=== PATIENT | female | born 2005 | race Caucasian/White ===

== ENCOUNTER 2025-08-11 13:24 | Emergency (ER) | payer OTHER, SELFPAY ==
[2025-08-11 13:30] VITALS: BP 101/62; PULSE 77; RESP 18; TEMP 37.2; O2SAT 98
--- NOTE | 2025-08-11 13:56 | ED_ITS ---
HPI - Ear Problem General Chief complaint: Ear Stated complaint: Ear pain Time Seen by Provider: 08/11/25 13:45 Source: patient, family, RN notes reviewed and old records reviewed Mode of arrival: ambulatory Limitations: no limitations History of Present Illness HPI Narrative: 19 year old female who presents to [facility] care accompanied by mother with complaints of bilateral ear pain with left ear greatest and sore throat for 3 days. Mother reports that patient has problems with ear wax and thinks that is why ears hurt. Patient also states that she ate something hot and she thinks she may of burned the roof of her mouth. Patient reports no cough, body aches or any known fevers or chills. MD Complaint: ear pain and other (sore throat) Location: left ear Duration: constant Severity: moderate Discharge from ear: Reports no Treatment prior to arrival: attempt at ear wax removal Related Data Home Medications ?Medication ?Instructions ?Recorded ?Confirmed ?Last Taken ?Type Flonase 08/11/25 Unknown History Zyrtec 08/11/25 Unknown History escitalopram oxalate 10 mg tablet mg 08/11/25 Unknown History Allergies Allergy/AdvReac Type Severity Reaction Status Date / Time No Known Allergies Allergy Verified 08/11/25 13:39 Review of Systems Review of Systems: CONSTITUTIONAL: Denies malaise, chills, sweats, or fever. EYES: Denies visual changes, redness, or discharge. ENT: Reports no rhinorrhea, congestion, sinus pain,bilateral otalgia, Left > Right,and+ sore throat. CARDIOVASCULAR: Denies chest pain, palpitations, or edema. RESPIRATORY: Reports no cough.? Denies dyspnea. GASTROINTESTINAL: Denies abdominal pain, nausea, vomiting, diarrhea SKIN: Denies rash or itching. MUSCULOSKELETAL: Denies myalgia. NEUROLOGIC: Denies headache. All systems reviewed & are unremarkable except as noted in HPI and below PMFSH Past Medical History Medical History (Updated 08/12/25 @ 14:05 by Lynette Del Rio APRN) Autism spectrum Surgical History Surgical History (Updated 08/12/25 @ 13:52 by Lynette Del Rio APRN) History of dental surgery some teeth removed H/O eye surgery right Social History Social History (Updated 08/12/25 @ 13:53 by Lynette Del Rio APRN) Smoking status: Never smoker Alcohol intake: never Substance use: never Living arrangements: with family Gender identity (if verbalized by the patient): Female Comments At time of signature, agree with nursing past medical, surgical, social and family history. There is no relevant family history pertinent to the presenting complaint Exam Narrative: GENERAL: Well-appearing, well-nourished, and in no acute distress. HEAD: Normocephalic EYES: PERRLA, conjunctivae clear ENT: Nares clear, turbinates edematous and erythematous, clear discharge. Mucous membranes moist.Right TM pearly chávez with dull light reflex bilaterally; Left TM occluded with wax, some irritation noted to ear canal, once cleared TM noted to be chávez with dull light reflex, no tragal tenderness. Oropharynx erythematous without lesions. Tonsils not enlarged and without exudate, no drooling, no hoarseness, no trismus, uvula midline.no redness noted to roof of mouth or surrounding structure. NECK: Supple. No lymphadenopathy CHEST: Clear to auscultation, breath sounds equal. No wheezing, rhonchi, rales, or stridor. No respiratory distress, speaks in full sentences.SAO2 99% on room air HEART: Regular rate and rhythm. No murmur heard. SKIN: Warm, dry, no rash. NEURO: Alert and oriented x3. PSYCH: Normal mood and affect, does have history of autism Course Course Level of Care: Express Care Visit Vital Signs Vital signs: Vital Signs Temperature 37.2 C 08/11/25 13:30 Pulse Rate 77 08/11/25 13:30 Respiratory Rate 18 08/11/25 13:30 Blood Pressure 101/62 08/11/25 13:30 Pulse Oximetry 98 08/11/25 13:30 Oxygen Delivery Room Air 08/11/25 13:30 Temperature 37.2 C 08/11/25 13:30 Pulse Rate 77 08/11/25 13:30 Respiratory Rate 18 08/11/25 13:30 Blood Pressure 101/62 08/11/25 13:30 Pulse Oximetry 98 08/11/25 13:30 Oxygen Delivery Room Air 08/11/25 13:30 Procedures Ear Wax Removal Left Ear: Ear Wax Removal Date: 08/11/25 Ear Wax Removal Time: 14:00 Cerumenolytic Used: 5-10% Sodium Bicarb solution Results: Re-examined: some cerumen remains TM Examination: TM(s) intact, normal appearance Ear Canal Exam: other (some redness to ear canal as previously noted) Patient Tolerated Procedure: well Complications: no problems Technique: ear canal irrigated and ear canal curetted Additional Comments: Unable to remove all wax from left ear some redness of canal noted as previously noted no bleeding or trauma from procedure [facility] Narrative Medical decision making narrative: 19 year old female accompanied by mother with ear pain and sore throat, tested negative for strep with cerumen impaction left ear. Left ear canal noted to be irritated prior to irrigation of left ear will treat with ear drops for possible otitis externa, and OTC medications for discomfort of Tylenol or Ibuprofen encouraged for any pain. Anticipatory guidance and reasons to seek further care in ED revewed with mother and patient with understanding voiced. Differential Diagnosis Differential Diagnosis: cerumen impaction left ear, otitis media, otitis externa, pharyngitis, strep pharyngitis, Lab Data [facility] Lab Attestation statement: I personally reviewed the patient's lab results. Lab results narrative: strep screen negative Labs: Lab Results 08/11/25 Range/Units 13:58 POC Grp A Strep Screen Negative (Negative) reviewed Critical Care Time Critical Care Time Critical Care Time: No Discharge Plan Discharge Clinical Impression: Impacted cerumen, left ear Otitis externa Qualifiers: Otitis externa type: unspecified type Chronicity: acute Laterality: left Qualified Code(s): H60.502 - Unspecified acute noninfective otitis externa, left ear Pharyngitis Qualifiers: Pharyngitis/tonsillitis etiology: unspecified etiology Qualified Code(s): J02.9 - Acute pharyngitis, unspecified Patient Disposition: Home Condition: Stable Instructions: Antibiotic Form Additional Instructions: Increase fluids especially juices and water [id number] cough and cold medicine of your choice for your symptoms ear drops as ordered to the left ear heat to the face 20-30 minutes 4-6 times a day for pain Salt water gargles, throat lozenges or throat sprays as desired Your strep test today was negative. A throat culture will be sent to the laboratory for further testing. IF the test is positive, you will receive a phone call within 48 hours and an appropriate antibiotic will be initiated at that time. Recommend using Debrox once a week after completion of ear drops. If your symptoms persist, change or worsen significantly before you can contact your personal physician then please, without delay, go to the emergency department for further evaluation. Follow-up with PCP in 7-10 days or sooner if needed Patient Language: Nepalese Prescriptions: New ofloxacin 0.3 % drops 5 drp LEFT EAR DAILY 7 Days Qty: 10 0RF No Action escitalopram oxalate 10 mg tablet Flonase Zyrtec Follow-up/Referrals: Gertrudis,Isaak Echols MD [Primary Care Provider, Unknown] Time of Disposition: 14:20 Quality Waqar Coma Scale Eyes: Open Verbal: Oriented and Alert Motor: Follows Commands [place] Coma Total Score: 15
[2025-08-11 14:04] LABS: EDSTREPNEGPOS1 Negative (Negative)
--- OUTSIDE RECORDS SUMMARY | 2025-08-11 14:39 | XMS_ITS | Clinical Summary ---
Author Organization [facility] Address [address] [place] [address] Phone Care Team Providers Care Paper Coating Machine Operator Name Role Phone Telma Lai MD Primary Care Provider Medications No known medications Active Problems Problem Noted Date Diagnosed Date Anxiety 01/01/2022 Autism 01/01/2022 Family History Medical History Relation Name Comments Asthma Mother Hypertension Mother Relation Name Status Comments Mother Alive Social History Tobacco Use Types Packs/Day Years Used Date Smoking Tobacco: Never Assessed Comments Unknown Sex and Gender Information Value Date Recorded Sex Assigned at Not on file Legal Sex Female 1:37 PM CDT Gender Identity Not on file Sexual Orientation Not on file Plan of Treatment Health Maintenance Due Date Last Done Comments Hepatitis C Virus (HCV) Screening 2003 Meningococcal B Immunization (1 of 2 - Standard) 2019 Influenza Immunization (#1) 2025 07/05/2016 SARS-COV-2 Immunization ( season) 2025 11/24/2021, 02/04/2021, 01/14/2021 Respiratory Syncytial Virus (RSV) Immunization (Adult) (1 - 1-dose 75+ series) 2078 Hepatitis B Immunization Completed 005, 03/07/2004, 01/06/2004, Additional history exists Pneumococcal Immunization Combined Completed 04/10/2005, 03/07/2004, 01/06/2004, Additional history exists Measles Mumps Rubella (MMR) Immunization Discontinued 03/29/2008, 02/08/2005 Varicella Immunization Completed 03/29/2008, 2004 DTaP/Tdap/Td Immunization Discontinued 2014, 01/26/2009, 04/10/2005, Additional history exists Hepatitis A Immunization Discontinued 04/07/2015, 01/08 Meningococcal Immunization (ACWY) Aged Out 04/07/2015 No longer eligible based on patient's age to complete this topic TdaP Immunization Completed 04/07/2015 Human Papillomavirus (HPV) Immunization Completed 06/05/2018, 12/25/2016, 07/05/2016 Rotavirus Immunization Aged Out No lo nger eligible based on patient's age to complete this topic Goals Goal Patient Goal Type Associated Problems Recent Progress Patient-Stated? Author I want Astrid to excel at life and to be able to take care of herself without me-mom Behavioral Health Improving( 3:44 PM RF DESIGN ENGINEER) Nhung Dior LCSW Note: to have reduction of anxiety and depression symptoms. Goal Reviewed with: patient today Readiness to change: Not yet ready to make a change Department associated with goal: [facility] Steps to achieve goal: will attend counseling/psychotherapy sessions at least once monthly, utilizing individual and/or group sessions to express thoughts and feelings. to identify, verbalize and process at least three contributing factors/triggers to anxiety and depression. to identify and verbalize at least three actions/skills to prevent and/or cope with anxiety and depression. to put into action, at least one time weekly, for one month, an action/skill to prevent and or cope with anxiety and depression. decrease anxiety and depression by 25% Behavioral Health Improving( 3:44 PM RF DESIGN ENGINEER) Nhung Dior LCSW Note: to have reduction of anxiety and depression symptoms. Goal Reviewed with: patient today Readiness to change: Thinking about making a change Department associated with goal: [facility] Steps to achieve goal: will attend counseling/psychotherapy sessions at least once monthly, utilizing individual and/or group sessions to express thoughts and feelings. to identify, verbalize and process at least three contributing factors/triggers to anxiety and depression. to identify and verbalize at least three actions/skills to prevent and/or cope with anxiety and depression. to put into action, at least one time weekly, for one month, an action/skill to prevent and or cope with anxiety and depression. Insurance [facility] Care Teams Paper Coating Machine Operator Relationship Specialty Start Date End Date Telma Lai MD PCP - General Family Medicine 02/19/22
--- OUTSIDE RECORDS SUMMARY | 2025-08-11 14:39 | XMS_ITS | Clinical Summary ---
Author Organization [facility] Address [address] [place] [address] Care Team Providers Care Plaster Mechanic Name Role Phone Isaak Caba MD Primary Care Provider [phone] Allergies Active Allergy Reactions Criticality Noted Date Comments Quetiapine Rash Medium 06/18/2023 Medications fluticasone propionate (FLONASE) 50 mcg/actuation nasal spray Administer 50 mcg into affected nostril(s) daily as needed Active multivitamin tabletIndicatio ns:Vitamin Deficiency Prevention Take 1 tablet by mouth daily 4 Active loratadine (CLARITIN) 10 mg tablet Take 1 tablet (10 mg total) by mouth daily Active escitalopram (LEXAPRO) 10 mg tabletIndicatio ns:Anxiety and depression Take 1 tablet (10 mg total) by mouth daily 90 tablet 3 5 Active Active Problems Problem Noted Date Diagnosed Date Acute non-recurrent pansinusitis 01/27/2025 Assessment & Plan (02/15/2025 6:21 AM CDT): See Familia HPI/AP. Assessment & Plan (01/27/2025 11:27 AM CDT): Acute, unstable Differential ddx: sinusitis v viral URI v COVID v influenza v PNA Relative history: allergic rhinitis Current meds: antihistamines POC tests today: POCT influenza A/B and POCT COVID antigen deferred today Today's Plan: Meds: Azithromycin Maintain hydration, cool mist humidifier nightly OTC recs: Tylenol, NSAIDs (ibuprofen, aleve, naproxen), Mucinex, Nasocort or Flonase, NeilMed sinus rinses, and antihistamine (Zyrtec, Daya, Claritin) Consults: none today Goal: resolution of infection, control of environmental allergies Persistent mood disorder 02/20/2024 Assessment & Plan (02/15/2025 6:21 AM CDT): See Familia HPI/AP. Assessment & Plan (07/04/2024 4:47 PM CDT): New symptom as of several months ago, although it is likely she has had mood problems off and on for longer than that. She gets down on herself, does not think she can overcome her disabilities. When she gets a bad grade on a test she thinks it is her fault. She spends a lot of time at home and seems socially isolated. Mom is thinking of getting her a pet dog for companionship. She has no suicidal thoughts but does have thoughts of mild self-harm such as pulling out her fingernails. She does not think the current dose of escitalopram is helping her much. She has been to counseling in the past but not recently. I recommended increasing the dose of escitalopram from 5 mg daily to 10 mg daily. I recommended that she seek out counseling and provided her with a referral. Follow-up here in about two months. Assessment & Plan (03/31/2024 1:03 PM CDT): Chronic, fair to poor control. She takes Lexapro 5 mg daily. Her mother does not think it is helping much. The patient stays in her room a lot and his trouble socializing, even with her friend. Mom thinks things got worse after she and her father got . The patient was in counseling for awhile at [facility]. On exam today, the patient has a somewhat flat affect but basically interacts well. We suggested stopping Singulair which can sometimes affect the mood. Continue Lexapro and follow-up in three months. Assessment & Plan (10/16/2023 4:01 PM STATE DIRECTOR): Chronic and improved PHQ-9 score is 6, farooq 7 score 4. Mild anxiety and depression Continue Lexapro 5 mg daily Continue to monitor symptoms F/u 3 months Assessment & Plan (07/17/2023 2:19 PM STATE DIRECTOR): Chronic and improved PHQ-9 score is 8, farooq 7 score 6 Continue Lexapro 5 mg daily Continue to monitor symptoms F/u 3 months Assessment & Plan (05/31/2023 12:19 PM CDT): Chronic and ongoing. PHQ-9 score is 14, farooq 7 score 10 Discussed treatment options with patient and MOP Start Zoloft 50 mg daily. Risks/benefits and alternatives discussed F/u 6 weeks. Assessment & Plan (11/28/2021 4:20 PM CDT): Chronic. FAROOQ 7 score 8 - Minimal Difficult to determine the severity of anxiety with these general questions. Also hard to determine what reactions maybe related to anxiety vs autism vs poor coping mechanisms. -will refer to Psychology for official evaluation and treatment -follow-up 6-8 weeks as needed Jaw pain 03/27/2022 Assessment & Plan (03/27/2022 4:38 PM CDT): Mild. PE WNL today. ?TMJ pain. Advised MOP to continue to monitor. Can use Tylenol 500-1000mg q6h prn or Ibuprofen 600mg q8h. Continue wearing dental makeup editor. Keep dental appointment for further eval. 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 She had a follow-up with her eye surgeon and things were improved so the proposed amblyopia surgery was canceled. We presented this as a positive factor in her life. Assessment & Plan (03/31/2024 1:04 PM CDT): Chronic, worsening. She is scheduled for strabismus surgery. She had strabismus surgery previously when she was 2 years old, but the condition recurred. It appears to be primarily weakness of the right lateral rectus. There is no medical contraindication to having the surgery. Assessment & Plan (11/10/2021 4:15 PM STATE DIRECTOR): Esotropia R.eye. Referred to Opthalmology Spells of decreased attentiveness 09/21/2020 Allergic rhinitis due to pollen 01/25/2016 Assessment & Plan (02/15/2025 6:21 AM CDT): See Familia HPI/AP. Assessment & Plan (01/27/2025 11:28 AM CDT): Chronic, unstable Differential diagnoses: environmental allergies v viral URI Current therapy (ies)/home meds: Zyrtec POC tests today: POCT influenza A/B and POCT COVID antigen: deferred today Today's Plan: OTC recs: Tylenol, NSAIDs (ibuprofen, aleve, naproxen), Mucinex, Nasocort or Flonase, NeilMed sinus rinses, and antihistamine (Zyrtec, Daya, Claritin) Maintain hydration; eat a balanced, heart-healthy diet; get plenty of rest, salt water gargles Consults: consider allergy and immunology Goal: symptom improvement Assessment & Plan (07/02/2024 1:18 PM CDT): Chronic, present for more than five years, she takes cetirizine daily to control symptoms, also uses a fluticasone nasal inhaler. Continue same. Assessment & Plan (03/26/2024 2:53 PM CDT): She uses Flonase and nonsedating antihistamines seasonally as needed for allergies. Continue same. We recommended that she discontinue Singulair due to possible effects on her mood. Return for follow-up in three months. Autism Assessment & Plan (02/15/2025 6:21 AM CDT): See Familia HPI/AP. Assessment & Plan (07/04/2024 4:48 PM CDT): Chronic, present since a young age. She continues in school and is thinking of getting a part-time job, but is worried that she would not do well in a job. We encouraged her to seek out opportunities outside the home to engage economically and socially. She has a somewhat complicated relationship with her electronic devices. We discussed the potential negative aspects social media on mood. Assessment & Plan (03/31/2024 1:04 PM CDT): Chronic, stable. She completed two years of classes at [employer]. She lives with her mom who is supportive and who attended today's visit. We will see her back in three months. Resolved Problems Problem Noted Date Diagnosed Date Resolved Date Nasopharyngitis acute 11/07/20232023 Overview (03/26/2024): Saw SEB Garcia. Assessment & Plan (11/07/2023 2:47 PM STATE DIRECTOR): URI symptoms for 1 week. Tested negative for COVID and FLU in office today. No acute findings on exam, vitals stable. Likely viral, discussed typical timeline. Continue zyrtec and flonase. Use OTC meds as needed for cough. Tylenol/Ibuprofen as needed for pain. Increase fluids (water) Cool mist humidifier at night Use sinus rinses to help flush bacteria and help with congestion. Encouraged honey, marshmallows, gelatin, or chloraseptic to help coat throat. Call with any worsening or persistent symptoms. Cough 05/31/2023 11/07/2023 Viral upper respiratory tract infection 10/30/2022 11/07/2023 Assessment & Plan (10/30/2022 2:57 PM STATE DIRECTOR): Acute problem, present times about 5 days Physical examination as documented - no signs/symptoms of serious illness noted Recommended continued symptom management/monitoring - patient and mother agreeable to plan Orders for AMS STAFF to arrange None at this time Orders for Astrid Perez to arrange Continue Flonase as prescribed - can increase to twice daily for 1-2 weeks then decrease to once daily again Continue Singulair as prescribed Continue daily Zyrtec Consider sinus rinses and other OTC medications as needed for symptom relief Continue monitoring symptoms - report persistent or worsening symptoms to the office or go to ER Follow up as scheduled with Dr. Lai or sooner if necessary Annual physical exam 11/10/2021 024 Overview (07/02/2024): Dr. Lai. Assessment & Plan (11/10/2021 4:14 PM STATE DIRECTOR): Doing well. BMI 24.9 Routine labs ordered - GC/Chlamydia recommended. Denies sexual activity Preventative Screening Due: N/A Dietary and exercise recommendations given today Vaccines due - current RTC annually for f/u Immunizations Immunization Administration Dates Next Due DTaP 01/26/2009, 5,03/07/2004,01/05,2003 DTaP, Unspecified 01/26/2009, 5,03/07/2004,01/05,2003 HPV, Quadrivalent 06/05/2018 HPV9 12/25/2016,07/05/2016 Hep A, Pediatric 04/07/2015,01/26/2009 Hep A, Unspecified 04/07/2015,01/26/2009 Hep B, Adolescent or Pediatric 4,01/06/2004,2003,08/25 Hep B, Unspecified 03/07/2005, 4,01/06/2004,11/04,2003 HiB 03/07/2005, 4,01/06/2004,11/04 Hib (PRP-D) 03/07/2005, 4,01/06/2004,11/04 Hib (PRP-T) 03/07/2005, 4,01/06/2004,11/04 IPV 01/26/2009, 4,01/06/2004,11/04 Influenza, Quadrivalent, Spl it, Intramuscular 07/05/2016 Influenza, Trivalent, Preser vative Free, Intramuscular 07/02/2024 Influenza, Unspecified 07/01/2023(Deferred: Kandis ent Refused) MMR 03/29/2008,02/08/2005 Meningococcal Conjugate (Menveo) 04/07/2015 Meningococcal MCV4P (Menactra) 04/07/2015 Pneumococcal Conjugate 7-Valent 04/10/20 05,03/07/2004,01/06/2004,11/04 Pneumococcal Conjugate PCV 13 04/10/2005 ,03/07/2004,01/06/2004,11/04 Polio, Unspecified 01/26/2009, 4,01/06/2004,11/04 Tdap 04/07/2015 Varicella 03/29/2008,02/08/2005 Medical History Medical History Date Comments Autism Anxiety Seizures (HCC) Negative 021 Nasopharyngitis acute 11/07/2023 Saw SEB Pérez. Annual physical exam 11/10/2021 Dr. Lai . Family History Medical History Relation Name Comments Hyperlipidemia Father Obesity Father Asthma Mother Bipolar disorder Mother Depression Mother Epilepsy Mother Obesity Mother Seizures Mother Relation Name Status Comments Father Mother Social History Tobacco Use Types Packs/Day Years Used Date Smoking Tobacco: Never Smokeless Tobacco: Never Tobacco Cessation:Counseling Given: Not Answered Alcohol Use Standard Drinks/Week Comments Never 0 (1 standard drink = 0.6 oz pur e alcohol) PHQ-2 Answer Date Recorded PHQ-2 Total Score 3 07/02/2024 PHQ-9 Answer Date Recorded PHQ-9 Total Score 9 07/02/2024 Personal Safety Answer Date Recorded Have you ever been in or are you currently in a harmful physical or emotional relationship or is someone making you feel afraid or unsafe? Denies 06/18/2023 Comments No Sex and Gender Information Value Date Recorded Sex Assigned at Not on file Legal Sex Female 1:19 PM STATE DIRECTOR Gender Identity Not on file Sexual Orientation Not on file Last Filed Vital Signs Vital Sign Reading Time Taken Comments Blood Pressure 128/62 02/15/2025 1:06 PM CDT Pulse 94 02/15/2025 1:06 PM CDT Temperature 36.7 C (98 F) 02/15/2025 1:06 PM CDT Respiratory Rate 16 02/15/2025 1:06 PM CDT Oxygen Saturation 98% 02/15/2025 1:06 PM CDT Inhaled Oxygen Concentration - - Weight 69.9 kg (154 lb 3.2 oz) 02/15/2025 1:06 P M CDT Height 162.6 cm (5' 4.02) 02/15/2025 1:06 PM CD T Body Mass Index 26.46 02/15/2025 1:06 PM CDT Plan of Treatment Health Maintenance Due Date Last Done Comments Cervical Cancer Screening 2003 Chlamydia and Gonorrhea (GC/CT) Screening 2003 Meningococcal B Vaccine (1 of 2 - Standard) 2019 DTaP/Tdap/Td Vaccine (7 - Td or Tdap) 04/07/2025 04/07/2015, 01/26/2009, 01/26/2009, Additional history exists Covid-19 Vaccine ( season) 2025 11/24/2021, 02/04/2021, 01/14/2021 Influenza Vaccine (#1) 2025 07/02/2024, 2015 Depression Screening 07/02/2025 07/02/2024, 07/02/2024, 10/16/2023, Additional history exists Regular Well Visit/Exam 18-64 07/02/2025 07/02/2024, 11/10/2021 Hepatitis B Screening Completed 03/07/2005 , 03/07/2004, 03/07/2004, Additional history exists Pneumococcal vaccine <65 Completed 005, 04/10/2005, 03/07/2004, Additional history exists Varicella Vaccines Completed 03/29/2008, 02/08/2005 Meningococcal Vaccine Aged Out 04/07/2015, 015 No longer eligible based on patient's age to complete this topic HPV Vaccines Completed 06/05/2018, 12/08, 07/05/2016 Hepatitis C Screening Completed 02/15/2025 Procedures Procedure Name Priority Date/Time Associated Diagnosis Comments HEPATITIS C ANTIBODY Routine 02/15/2025 1:54 PM CDT Need for hepatitis C screening test from Last 3 Months or Most Recently Relevant to Health Maintenance Results * Hepatitis C antibody Blood (02/15/2025 1:54 PM CDT) Hep C Ab Nonreactive Nonreactive Comment: Interpretive Data Nonreactive: Antibodies to HCV not detected. Does NOT exclude the possibility of recent exposure to HCV. Equivocal: Equivocal for HCV antibodies. Supplemental molecular testing will be automatically performed to determine infection status in accordance with current CDC screening recommendations. Reactive: Positive for HCV antibodies. This may represent current or past HCV infection. Supplemental molecular testing will be automatically performed to determine current infection status in accordance with current CDC screening recommendations. Interpretive data was last revised on 2019. Testing performed by: [facility], [address] [place] [address]., [id number] Blood 02/15/2025 1:54 PM CDT 02/15/2025 8:10 PM CDT Isaak Caba MD LAB MICROBIOLOGY - GENERAL OR DERABLES Final Result [facility] [id number] [facility] Department [place] [address] from Last 3 Months or Most Recently Relevant to Health Maintenance Insurance [facility] CHOICE PLUS [facility] CHOICE PLUS [facility] CHOICE PLUS CHOICE PLUS Care Teams Plaster Mechanic Relationship Specialty Start Date End Date Isaak Caba MD [address] [place] [address] PCP - General Internal Medicine 03/26/24
--- OUTSIDE RECORDS SUMMARY | 2025-08-11 14:39 | XMS_ITS | Clinical Summary ---
Author Organization [facility] Address [address] [place] [address] Care Team Providers Care Hotel Maid Name Role Phone Unavailable Primary Care Provider Unavailabl e Source Comments [facility],non-owned Affiliates and Associated Physician Practices is amultiple site organization consisting of ambulatory clinics and hospital sitesin [place], [place], [place] and [place]. This disclosure is being madepursuant to the Care Everywhere program and may not contain all information available regarding this patient. Last updated 18.[facility] Allergies No known active allergies Medications * Be aware that medications may not be up to date on this document. Alwaysverify current medications with the patient. cefdinir (OMNICEF) 250 MG/5ML SUSR suspension 10 ml daily for 10 days 100 mL 0 05/17/2015 Active Montelukast Sodium (SINGULAIR PO) Activ e Fluticasone Propionate (FLONASE NA) Active Phenylephrine-gu aiFENesin (ZYRPHEN PO) Active Active Problems Problem Noted Date Diagnosed Date Autistic disorder 06/30/2012 Immunizations Immunization Administration Dates Next Due DTaP VACCINE IM (6wk-6yrs) 01/26/2009,,03/07/2004, 4,2003 HEP A PEDS 2 DOSE 04/07/2015,01/26/2009 HEP B VACCINE, PED/ADOL 03/07/2004,01/05,2003, 3 HIB BOOSTER 03/07/2005, 4,01/06/2004, 4 MENINGOCOCCAL ACWY (MCV4P) VAC IM 04/07/2015 MMR 04/08/2008,02/08/2005 PNEUMOCOCCAL CONJ, PEDS 04/10/2005,03/07,01/06/2004, 4 POLIO IPV 01/26/2009, 4,01/06/2004, 4 TDAP (7yrs+) 04/07/2015 VARICELLA 04/08/2008,02/08/2005 Social History Tobacco Use Types Packs/Day Years Used Date Smoking Tobacco: Never Assessed Comments No Sex and Gender Information Value Date Recorded Sex Assigned at Not on file Legal 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 Gender Identity Not on file Sexual Orientation Not on file Last Filed Vital Signs Vital Sign Reading Time Taken Comments Blood Pressure 90/46 05/17/2015 11:51 AM CDT Pulse 90 01/03/2019 11:56 AM CDT Temperature 37.4 C (99.3 F) 01/03/2019 11:56 AM CDT Respiratory Rate 18 01/03/2019 11:56 AM CDT Oxygen Saturation 98% 01/03/2019 11:56 AM CDT Inhaled Oxygen Concentration - - Weight 72.8 kg (160 lb 6.4 oz) 01/03/2019 11:56 AM CDT Height 161.3 cm (5' 3.5) 01/03/2019 11:56 AM CD T Body Mass Index 27.97 01/03/2019 11:56 AM CDT Plan of Treatment Health Maintenance Due Date Last Done Comments HIV SCREENING 2018 HPV VACCINE (1 - 3-dose series) 2018 CHLAMYDIA/GONORRHEA SCREENING 2019 MENINGOCOCCAL (Group B) VACCINE SHARED DECISION-MAKING (1 of 2 - Standard) 2019 HEPATITIS C SCREENING 08/18/2021 DEPRESSION SCREENING 09/09/2024 DTAP/TDAP/TD VACCINES (7 - Td or Tdap) 04/07/2025 04/07/2015, 01/26/2009, 04/10/2005, Additional history exists COVID-19 VACCINE (2024- season) 2025 INFLUENZA VACCINE (#1) 2025 ZOSTER VACCINE (1 of 2) 2053 HEPATITIS B VACCINE Completed 03/07/2004, 01/06/2004, 2003, Additional history exists HIB VACCINE Completed 03/07/2005, 02/08, 01/06/2004, Additional history exists PNEUMOCOCCAL VACCINE Completed 04/10/2005, 03/07/2004, 01/06/2004, Additional history exists MENINGOCOCCAL GROUPS A/C/Y/W VACCINE Aged Out 04/07/2015 No longer eligible based on patient's age to complete this topic Goals Goal Patient Goal Type Associated Problems Recent Progress Patient-Stated? Author Use safety retraint in car Lifestyle On track( 015 5:57 PM CDT) Bebe Shabazz [place] [address] [place] [address] [facility] * Guarantor: ASTRID PEREZ Account Type Relation to Patient Date of Phone Billing Address Personal/Family [address] [place] [address]
== END 2025-08-11 14:31 | disposition home or self-care (01) ==
PROVIDERS: Emergency Provider Registered Nurse; PCP Internal Medicine Infectious Disease
DX: H61.22 Impacted cerumen, left ear (principal); H60.502 Unspecified acute noninfective otitis externa, left ear; J02.9 Acute pharyngitis, unspecified; F84.0 Autistic disorder
CPT/HCPCS: 69210; 87081; 87880; 99203; G0463